=== PATIENT | female | born 1945 | race Caucasian/White ===

== ENCOUNTER 2017-05-01 16:39 | Emergency (ER) | payer MEDICARE, OTHER ==
[2017-05-01 17:14] VITALS: BP 132/76; PULSE 94; TEMP 98; BMI 33.5
[2017-05-01] MEDS ORDERED: ACETAMINOPHEN 325 MG TABLET (FP) PO ONE (17:45)
[2017-05-01] MEDS ORDERED: ACETAMINOPHEN 325 MG TABLET (FP) ONE (17:49)
--- NOTE | 2017-05-01 17:53 | PDOC ---
History of Present Illness - General Chief Complaint: Injury Stated Complaint: FALL INJURY Time Seen by Provider: 05/01/17 17:32 History Source: Patient Exam Limitations: No Limitations - History of Present Illness Initial Comments: 05/01/17 17:46 This is a 71-year-old female without significant past medical history presents to emergency department with left hand pain and right shoulder pain status post trip and fall walking on the sidewalk today. Patient states she was walking to a dentist when she stepped in a hole on the sidewalk falling face first onto the concrete. She was able to protect her face with her left wrist during the fall. After the fall she struck her right shoulder on the ground. She denies feeling dizzy prior to fall. She denies any fevers, chills, chest pain, head trauma, lightheadedness, dizziness, shortness of breath. PMD: Siegel PMH: Denies PSH: Denies Tobacco: Denies EtOH: Denies Illicits: Denies Past History - Past Medical History Allergies/Adverse Reactions: Allergies Allergy/AdvReac Type Severity Reaction Status Date / Time No Known Allergies Allergy Verified 05/01/17 17:14 Home Medications: Ambulatory Orders Ergocalciferol (Vitamin D2) [Vitamin D2] 1 cap PO WEEKLY 12/23/14 Omeprazole [Prilosec (RX)] 1 tab PO DAILY 12/23/14 Naproxen [EC-Naprosyn 375 MG] 375 mg PO Q12H PRN #14 tablet.ec 12/24/14 Calcium Citrate/Vitamin D3 [Calcium Citrate - Vit D3 Tab] 1 each PO DAILY Enoxaparin [Lovenox -] 80 mg SQ BID #60 disp.syrin 02/17/15 Fenofibrate Nanocrystallized [Tricor] 1 tab PO DAILY #30 tablet 02/17/15 Fluticasone Prop 0.05% Nasal [Flonase -] 1 - 2 spray NS DAILY PRN #1 bottle Metformin HCl 1 tab PO BID #60 tablet 02/17/15 Multivit with Calcium,Iron,Min [Tab A Young] 1 tab PO DAILY #30 tablet 02/17/15 Oxycodone HCl [Roxicodone -] 10 mg PO Q6H PRN #60 tablet 02/17/15 Anemia: No Asthma: No Cancer: No Cardiac Disorders: No CVA: No COPD: No CHF: No Dementia: No Diabetes: Yes GI Disorders: Yes (GERD) Disorders: No HTN: No Hypercholesterolemia: Yes Liver Disease: Yes (HEPATITIS B,FATTY LIVER) Seizures: No Thyroid Disease: No - Surgical History Abdominal Surgery: Yes (HERNIA REPAIR X 2) Appendectomy: No Cardiac Surgery: No Cholecystectomy: No GI Surgery: Yes (sleeve 02/10/15) Lung Surgery: No Neurologic Surgery: No - Suicide/Smoking/Psychosocial Hx Smoking History: Former smoker Have you smoked in the past 12 months: No If you are a former smoker, when did you quit?: 35 YRS AGO Information on smoking cessation initiated: No Hx Alcohol Use: No Drug/Substance Use Hx: No Substance Use Type: None Hx Substance Use Treatment: No Review of Systems - Review of Systems Able to Perform ROS?: Yes Is the patient limited Tajik proficient: No Constitutional: No: Symptoms Reported HEENTM: No: Symptoms Reported Respiratory: No: Symptoms reported Cardiac (ROS): No: Symptoms Reported ABD/GI: No: Symptoms Reported : No: Symptoms Reported Musculoskeletal: Yes: See HPI Integumentary: No: Symptoms Reported Neurological: No: Symptoms reported Endocrine: No: Symptoms Reported Hematologic/Lymphatic: No: Symptoms Reported *Physical Exam - Vital Signs Last Vital Signs Temp Pulse Resp BP Pulse Ox 98.0 F 94 H 20 132/76 100 05/01/17 17:10 05/01/17 17:10 05/01/17 17:10 05/01/17 17:10 05/01/17 17:10 - Physical Exam General Appearance: Yes: Appropriately Dressed. No: Apparent Distress HEENT: positive: GREGORY, Pharynx Normal Neck: positive: Trachea midline Respiratory/Chest: positive: Lungs Clear, Normal Breath Sounds. negative: Respiratory Distress, Accessory Muscle Use Cardiovascular: positive: Regular Rhythm, Regular Rate. negative: Murmur Gastrointestinal/Abdominal: positive: Normal Bowel Sounds, Soft. negative: Tender Musculoskeletal: positive: Normal Inspection. negative: CVA Tenderness Extremity: negative: Normal Range of Motion (decreased ROM of right shoulder. FROM of left wrist, hand, foot and ankle.) Integumentary: positive: Normal Color, Dry, Warm Neurologic: positive: eligibility specialist II-XII NML intact, Fully Oriented, Alert, Normal Mood/ Affect, Normal Response, Motor Strength 08/31 ED Treatment Course - RADIOLOGY Radiology Studies Ordered: Category Date Time Status SHOULDER-RIGHT [RAD] Stat Radiology 05/01/17 17:45 Ordered WRIST W/HAND-LEFT* [RAD] Stat Radiology 05/01/17 17:45 Ordered Medical Decision Making - Medical Decision Making 05/01/17 17:49 A/P: This is a 71-year-old female without significant past medical history presents to emergency department with left hand pain and right shoulder pain status post trip and fall walking on the sidewalk today. Patient states she was walking to a dentist when she stepped in a hole on the sidewalk falling face first onto the concrete. She was able to protect her face with her left wrist during the fall. After the fall she struck her right shoulder on the ground. She denies feeling dizzy prior to fall. She denies any fevers, chills, chest pain, head trauma, lightheadedness, dizziness, shortness of breath. Palpation of the shoulder reveals no deformity. Patient able to perform passive range of motion with assistance. No numbness or tingling distal to the injury. +2 radial pulses in right and left arms. Patient with pain to left hand that dorsum at the base of the third digit. There is no erythema, ecchymosis or swelling noted at this area. Patient is able to actively range against resistance without difficulty. Left ankle and foot no tenderness to palpation noted. No deformity, crepitus, dislocation is apparent. No tenderness to bony structures of the foot. Able to fully flex and dorsiflex foot against resistance. +2 dorsalis pedis pulses present. Differential diagnosis includes sprains versus fractures of right shoulder and left wrist/hand. Patient took Motrin prior to arrival. I will give the patient 650 mg of Tylenol orally now. I will obtain x-rays of right shoulder and left hand and wrist. I will reevaluate the patient after all testing is been completed. 05/01/17 21:47 X-rays is read by Dr. Mar are negative for any fractures and/or dislocations. I discussed the findings with the patient and she agrees with discharge. She been given a referral for follow-up with an orthopedist if symptoms do not resolve in the next 7 days. *DC/Admit/Observation/Transfer Diagnosis at time of Disposition: Sprain - Discharge Dispostion Disposition: HOME Condition at time of disposition: Stable Admit: No - Referrals Referrals: Elian Siegel [Primary Care Provider] - - Patient Instructions Additional Instructions: Keep him in a sling to help relieve pain in shoulder. Keep an Burton bandage on her left wrist to help with the pain. Take Motrin or Tylenol as needed for pain. Follow manufacturers instructions for appropriate dosage. You've been given a referral for an orthopedist. If symptoms do not resolve within the next 7 days call the orthopedist to make an appointment for further evaluation. Return to the emergency department for numbness and tingling of the fingers, worsening pain, any other concerns. Maryellen very much for choosing us to provide your emergent healthcare needs. - Post Discharge Activity
== END 2017-05-01 21:50 | disposition home or self-care (01) ==
LOC: JERFT 16:39
DX: S43.491A Other sprain of right shoulder joint, initial encounter (principal); S63.8X2A Sprain of other part of left wrist and hand, initial encounter; W17.2XXA Fall into hole, initial encounter; Y93.01 Activity, walking, marching and hiking; Y92.480 Sidewalk as the place of occurrence of the external cause; Y99.8 Other external cause status
CPT/HCPCS: 73030-TC-RT; 73110-TC-LT; 73130-TC-LT; 99281-25